=== PATIENT | male | born 2000 | race Caucasian/White ===

== ENCOUNTER 2021-02-18 11:12 | Outpatient (CLI) | payer OTHER ==
[~2021-02-18 11:12] MED LIST: MUCINEX DM1 TAB.SR . PO; OSEL75CA PO
== END 2021-02-18 11:22 | disposition home or self-care (01) ==
LOC: RAD 11:12
PROVIDERS: ATTEND Orthopaedic Surgery
DX: M25.561 Pain in right knee (principal); M25.562 Pain in left knee